=== PATIENT | female | born 1995 | race Caucasian/White ===

== ENCOUNTER 2019-08-30 18:57 | Inpatient (IN) ==
[2019-08-30] MEDS ORDERED: DEXTROSE 5%-LACTATED RINGERS 1,000 ML IV PRN (19:24)
[2019-08-30] MEDS ORDERED: RINGER'S SOLUTION,LACTATED 1,000 ML IV PRN (19:24)
[2019-08-30] MEDS ORDERED: OXYTOCIN/DEXTROSE 5%-WATER 30 UNITS/500 ML BAG IV ONE (19:24)
[2019-08-30] MEDS ORDERED: RINGER'S SOLUTION,LACTATED 1,000 ML IV ONE (19:24)
[2019-08-30] MEDS ORDERED: ONDANSETRON 4 MG TAB.RAPDIS PO PRN (19:24)
[2019-08-30] MEDS ORDERED: ONDANSETRON HCL/PF 2 MG/ML VIAL IV PRN (20:16)
[2019-08-30] MEDS ORDERED: BUPIVACAINE HCL/0.9 % NACL/PF 250 ML EP PRN (20:16)
[2019-08-30] MEDS ORDERED: NALOXONE HCL 1 MG/1 ML SYRG IV PRN (20:16)
--- NOTE | 2019-08-30 20:46 | ANES ---
Anesthesia Pre Procedure Eval Vitals/Labs: Last Vital Signs Temp 37.4 C 08/30/19 19:48 Pulse 108 H 08/30/19 19:48 Resp 16 08/30/19 19:48 BP 122/80 08/30/19 19:48 Pulse Ox 99 08/30/19 19:48 HOME MEDICATIONS vitamins no.121-iron 28 mg-folic acid 800 mcg tablet 1 tab PO DAILY tab 02/12/19 [Last Taken 08/29/19] ferrous sulfate 325 mg (65 mg iron) tablet 325 mg PO DAILY #30 tab 02/13/19 [Last Taken 08/30/19] aspirin 81 mg tablet,delayed release 81 mg PO DAILY 03/10/19 [Last Taken 1 ] breast pump See Dose Instructions .ROUTE .MEDSUPPLY #1 ea 07/16/19 [Last Taken Unknown] docusate sodium 100 mg capsule 100 mg PO DAILY 08/24/19 [Last Taken 08/30/19] Allergies/Adverse Reactions: Allergies Allergy/AdvReac Type Severity Reaction Status Date / Time No Known Drug Allergies Allergy Verified 08/30/19 19:36 - Planned Procedure Planned Procedure: LABOR Medication List Reviewed:: Yes Allergies Verified: Yes Medical History (Updated 08/20/19 @ 17:26 by Juan Delgado DO) Oligohydramnios without rupture of membranes (Acute) 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) 31 weeks UTI (urinary tract infection) (Acute) Onset Date: Unknown Otitis media (Acute) Onset Date: Unknown No significant past surgical history (Acute) Onset Date: Unknown Supracondylar fracture of humerus (Acute) Onset Date: Unknown left and was closed Chlamydia (Acute) Onset Date: Unknown Cellulitis (Acute) Onset Date: Unknown Bronchitis (Acute) Onset Date: Unknown Adjustment reaction (Acute) Onset Date: 03/20/11 , spontaneous Onset Date: 11/2018 4 weeks Prior demise, currently not Onset Date: 07/30/18 31 weeks Surgical History (Updated 06/16/18 @ 11:57 by Lawanda Castellon LPN) Elbow fracture (Acute) Onset Date: Unknown Family History (Updated 06/16/18 @ 11:31 by Lawanda Castellon LPN) Father Alive and well Mother Alive and well Grandmother Hypertension maternal grandmother Diabetes type 2 (maternal grandmother) Mother Alive and well - Family Anesthesia History Family History:: no untoward family reactions to anesthesia - Airway/Neck/Teeth Within Normal Limits:: Yes Teeth Condition: intact Neck Exam: full range of motion Mallampatti Score: 2 Thyromental (T-M) distance: > 6 cm Mandibulo Hyoid distance: > 3 cm - Respiratory Respiratory Physical: lungs clear Smoking Status: Never smoker Sleep Apnea currently treated: No Sleep Apnea by current assessment: No - Cardiovascular Tolerate Activity: Good Heart Sounds: S1 & S2, Regular - Anesthesia Assessment and Plan ASA Class: PS, II, E Anesthesia Type Plan: Epidural Planned difficult intubation/equipment available: No
--- NOTE | 2019-08-30 20:47 | ANES ---
Post Anesthesia Discharge - Transfer of Care Transfer of Care handoff given to nurse: Yes - Anesthesia Post Op Note Anesthesia Post Op Note: Care transferred to OB RN
--- NOTE | 2019-08-30 20:47 | ANES ---
Post Anesthesia Assessment - Vital Signs Vitals: Last Vital Signs Temp 37.4 C 08/30/19 19:48 Pulse 108 H 08/30/19 19:48 Resp 16 08/30/19 19:48 BP 122/80 08/30/19 19:48 Pulse Ox 99 08/30/19 19:48 Airway Patency: Normal - Mental Status Level Of Consciousness: Awake - Pain Level Pain Score: 0 - N/V Assessment Nausea/Vomiting Presence: None Dehydration:: No
--- NOTE | 2019-08-30 20:50 | ANES ---
Anesthesia Procedure Note Procedure Note: ANESTHESIA PROCEDURE NOTE Date of Procedure: 08/30/2019 Time of procedure: 2029. Performed by: Warren Varela CRNA Paste Worker: None. Preprocedure diagnosis: Active labor. Post procedure diagnosis: Same. Procedure: Insertion of labor epidural. Indications: The patient is a 24-year-old multigravida female in active labor requesting labor epidural for pain management. Findings: See below. Details of the procedure: The patient was placed in a sitting position. Back was prepped with DuraPrep. Patient was then draped in a sterile fashion. Lidocaine 1% was infiltrated to the skin and subcutaneous tissues at the level of the L3 4 interspace. The epidural space was identified using a 18-gauge Tuohy needle with [id number] technique. Epidural catheter was inserted without difficulty. Negative test dose was elicited using 3 mL of 1.5% preservative- free lidocaine plus epinephrine 1 200,000. The epidural catheter was then taped and secured in place. EBL: Minimal. Fluids: N/A. Specimen: N/A. Post procedure condition: The patient tolerated the procedure well. No complica tions were noted. Thank you for this consultation. Choe CRNA
[2019-08-31 03:14] LABS: Cocaine Ur Negative (NEGATIVE); Urine Barbiturate Negative (NEGATIVE); Urine Benzodiazepines Negative (NEGATIVE); Urine Opiates Negative (NEGATIVE); Urine PCP Negative (NEGATIVE); Urine THC Negative (NEGATIVE)
--- NOTE | 2019-08-31 06:56 | HP ---
Chief Complaint - Chief Complaint Date of Service: 08/30/19 Time of Service: 19:00 Chief Complaint: Leaking of fluid History of Present Illness: 24 yo at 38 wks admitted for SROM which occurred around 1830 on 08/30/19. This complicated by anemia and h/o 31 week stillbirth. 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 UTI (urinary tract infection) (Acute) Onset Date: Unknown Otitis media (Acute) Onset Date: Unknown No significant past surgical history (Acute) Onset Date: Unknown Supracondylar fracture of humerus (Acute) Onset Date: Unknown left and was closed Chlamydia (Acute) Onset Date: Unknown Cellulitis (Acute) Onset Date: Unknown Bronchitis (Acute) Onset Date: Unknown Adjustment reaction (Acute) Onset Date: 03/20/11 , spontaneous Onset Date: 11/2018 4 weeks Prior demise, currently not Onset Date: 07/30/18 31 weeks Surgical History: Surgical History (Updated 08/31/19 @ 06:56 by Juan Delgado DO) Elbow fracture (Acute) Onset Date: Unknown Family History: Family History (Updated 06/16/18 @ 11:31 by Lawanda Castellon LPN) Father Alive and well Mother Alive and well Grandmother Hypertension maternal grandmother Diabetes type 2 (maternal grandmother) Mother Alive and well Social History: (Last Reviewed 08/31/19 @ 07:02 by Juan Delgado DO) Social History: long term: No Marital status: household members: significant other current occupational status: employed 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 Highest education level completed: Bachelor's degree Service: No Tobacco: Smoking Status: Never smoker Alcohol: alcohol intake: former alcohol intake frequency: holiday/special occasion Substance Use: substance use type: does not use Dietary Habits: caffeine: No Exercise: Physical activity functional status: normal ROM and activity frequency: 3-4 times per week Personal Safety: victim of physical abuse: No victim of emotional abuse: No victim of sexual abuse: No Review Of Systems (GEN) - Review of Systems Generalized/Overall Review: Present: No Symptoms Reported EENTM: Present: No Symptoms Reported Respiratory: Present: No Symptoms Reported Cardiac: Present: No Symptoms Reported Abdominal: Present: Other - mild irregular contractions Genitourinary: Present: Other - large gush of fluid with leaking fluid thereafter since around 1830 - clear Musculoskeletal: Present: No Symptoms Reported Neurological: Present: No Symptoms Reported Skin: Present: No Symptoms Reported Endocrine: Present: No Symptoms Reported Allergies/Adverse Reactions: Allergies Allergy/AdvReac Type Severity Reaction Status Date / Time No Known Drug Allergies Allergy Verified 08/30/19 19:36 Home Medications: HOME MEDICATIONS vitamins no.121-iron 28 mg-folic acid 800 mcg tablet 1 tab PO DAILY tab 02/12/19 [Last Taken 08/29/19] ferrous sulfate 325 mg (65 mg iron) tablet 325 mg PO DAILY #30 tab 02/13/19 [Last Taken 08/30/19] aspirin 81 mg tablet,delayed release 81 mg PO DAILY 03/10/19 [Last Taken 08/30/19] breast pump See Dose Instructions .ROUTE .MEDSUPPLY #1 ea 07/16/19 [Last Taken Unknown] docusate sodium 100 mg capsule 100 mg PO DAILY 08/24/19 [Last Taken 08/30/19] Exam - Exam Vital Signs: Vital Signs - Last Taken Temp 37.4 C 08/30/19 19:48 Pulse 108 H 08/30/19 19:48 Resp 16 08/30/19 19:48 BP 122/80 08/30/19 19:48 Pulse Ox 99 08/30/19 19:48 Constitutional: Present: Alert, Oriented x3, Cooperative, No distress ENT Exam: Present: hearing grossly normal Breasts: Present: Exam deferred Respiratory: Present: lungs clear, no respiratory distress Cardiovascular/Chest: Present: regular rate, rhythm, no edema Abdomen: Present: soft, no rebound tenderness, other - gravid /Rectal: Present: Other - 4/60/-2 Extremity: Present: no pedal edema, no calf tenderness Skin Exam: Present: normal color, warm/dry, no cyanosis Neurologic: Present: alert, normal mood/affect, oriented x 3 Appearance: Present: appropriate appearance, appropriate insight Eye contact: Present: cooperative, good eye contact Thoughts: Present: normal thought pattern, normal mood /affect Diagnostic Studies: Laboratory Results Negative (NEGATIVE) 08/31/19 02:50 Negative (NEGATIVE) 08/31/19 02:50 Ur Phencyclidine Scrn Negative (NEGATIVE) 08/31/19 02:50 Urine Amphetamine Negative (NEGATIVE) 08/31/19 02:50 U Benzodiazepines Scrn Negative (NEGATIVE) 08/31/19 02:50 Negative (NEGATIVE) 08/31/19 02:50 Negative (NEGATIVE) 08/31/19 02:50 Assessment/Plan - Assessment/Plan (1) SROM (spontaneous rupture of membranes) Assessment: Admit for labor. Epidural and pitocin PRN. Minimize vaginal exams. Problem: Acute (2) History of stillbirth in currently patient Problem: Chronic Qualifiers: Trimester: third trimester Qualified Code(s): O09.293 - Supervision of with other poor reproductive or obstetric history, third trimester
[2019-08-31] MEDS ORDERED: IBUPROFEN 800 MG TABLET PO PRN (06:57)
[2019-08-31] MEDS ORDERED: BISACODYL 10 MG SUPP.RECT RC PRN (06:57)
[2019-08-31] MEDS ORDERED: SENNOSIDES 8.6 MG TABLET PO PRN (06:57)
[2019-08-31] MEDS ORDERED: BENZOCAINE/MENTHOL 81 SPRAY CAN TP PRN (06:57)
[2019-08-31] MEDS ORDERED: OXYTOCIN/DEXTROSE 5%-WATER 30 UNITS/500 ML BAG IV ONE (06:57)
[2019-08-31] MEDS ORDERED: HYDROCORTISONE 30 APPL TUBE TP PRN (06:57)
[2019-08-31] MEDS ORDERED: oxyCODONE HCL/ACETAMINOPHEN 1 TAB TABLET PO PRN (06:57)
--- NOTE | 2019-08-31 07:01 | OR ---
Operative Report - Dictated Report Narrative: 24-year-old 3 para 0 at 38 1/7 weeks had spontaneous vaginal delivery of vigorously crying viable male at 0620 on 08/31/2019 with Apgars 9 and 9, weighing 4072 g in TAMANNA position. Cord clamping delayed approximately 1 minute Placenta delivered complete, intact, with three vessel cord Estimated blood loss: Less than 50 ml Anesthesia: Epidural Lacerations: 2 cm second-degree vaginal laceration repaired with 3-0 Vicryl Rapide. History for History for Definition: * The number of deliveries resulting in a live the patient experienced prior to current hospitalization * The previous delivery of live twins or any live multiple gestation is considered one live event. *If primagravida or nulliparous is documented select zero for the number of previous live births. Live Events: Live Events: 0
[2019-08-31] MEDS ORDERED: DOCUSATE SODIUM 100 MG CAPSULE PO SCH (09:00)
[2019-08-31] MEDS: FERROUS SULFATE 325 MG TABLET PO SCH (10:08)
[2019-08-31] MEDS: DOCUSATE SODIUM 100 MG CAPSULE PO SCH ×2 (10:08→20:40)
[2019-08-31] MEDS: PRENATAL VITS96/IRON FUM/FOLIC 1 TAB TABLET PO SCH (10:09)
[2019-08-31] MEDS: GLYCERIN/WITCH HAZEL LEAF 40 APPL BOX TP PRN (11:35)
[2019-08-31] MEDS: IBUPROFEN 800 MG TABLET PO PRN ×2 (14:27→20:40)
[2019-09-01] MEDS: IBUPROFEN 800 MG TABLET PO PRN ×3 (04:13→20:54)
--- NOTE | 2019-09-01 08:31 | PN ---
Subjective - Date and Time Seen Date: 09/01/19 Time: 08:24 Objective - Vitals Vitals: Last Vital Signs Temp 36.6 C 09/01/19 07:21 Pulse 99 09/01/19 07:21 Resp 16 09/01/19 07:21 BP 120/73 09/01/19 07:21 Pulse Ox 99 09/01/19 07:21 Patient denies complaints. Breast-feeding Lochia wnl abdomen - soft, nontender Uterus -firm, at umbilicus - 1 no calf tenderness Impression: day #1 - s/p spontaneous vaginal delivery. Plan: Continue routine care Cauti Physician Documentation - Urinary Catheter Management Urethral ([place]) Date of Insertion: 08/31/19 Time of Insertion: 02:50 Assessment/Plan - Problems/Diagnosis (1) SROM (spontaneous rupture of membranes) Problem: Acute (2) History of stillbirth in currently patient Problem: Chronic Qualifiers: Trimester: third trimester Qualified Code(s): O09.293 - Supervision of with other poor reproductive or obstetric history, third trimester
[2019-09-01] MEDS ORDERED: FLU VACC QS2019-20(6MOS UP)/PF 60 MCG/0.5 ML SYRINGE IM ONE ×3 (09:00→16:30)
[2019-09-01] MEDS: FERROUS SULFATE 325 MG TABLET PO SCH (15:49)
[2019-09-01] MEDS: DOCUSATE SODIUM 100 MG CAPSULE PO SCH ×2 (15:49→20:54)
[2019-09-01] MEDS: PRENATAL VITS96/IRON FUM/FOLIC 1 TAB TABLET PO SCH ×2 (15:58→20:54)
[2019-09-02] MEDS: IBUPROFEN 800 MG TABLET PO PRN ×3 (05:18→23:01)
[2019-09-02] MEDS: FERROUS SULFATE 325 MG TABLET PO SCH (08:28)
[2019-09-02] MEDS: DOCUSATE SODIUM 100 MG CAPSULE PO SCH ×2 (08:28→20:49)
[2019-09-02] MEDS: PRENATAL VITS96/IRON FUM/FOLIC 1 TAB TABLET PO SCH (08:28)
[2019-09-02] MEDS: GLYCERIN/WITCH HAZEL LEAF 40 APPL BOX TP PRN (08:28)
--- NOTE | 2019-09-02 13:57 | PN ---
Subjective - Date and Time Seen Date: 09/02/19 Time: 13:56 Objective - Vitals Vitals: Last Vital Signs Temp 36.5 C 09/02/19 07:00 Pulse 93 09/02/19 07:00 Resp 14 09/02/19 07:00 BP 132/82 09/02/19 07:00 Pulse Ox 99 09/02/19 07:00 Patient denies complaints. Lochia wnl abdomen - soft, nontender Uterus -firm, at umbilicus - 2 no calf tenderness Impression: day #2 - s/p spontaneous vaginal delivery. Plan: Routine discharge instructions Cauti Physician Documentation - Urinary Catheter Management Urethral ([place]) Date of Insertion: 08/31/19 Time of Insertion: 02:50 Assessment/Plan - Problems/Diagnosis (1) SROM (spontaneous rupture of membranes) Problem: Acute (2) History of stillbirth in currently patient Problem: Chronic Qualifiers: Trimester: third trimester Qualified Code(s): O09.293 - Supervision of with other poor reproductive or obstetric history, third trimester
[2019-09-02 19:18] VITALS: BP 126/75
[2019-09-02] MEDS ORDERED: guaiFENesin 100 MG/5 ML SYRUP PO PRN (20:56)
== END 2019-09-02 23:55 | disposition home or self-care (01) | DRG 807 ==
LOC: OB 18:57
PROVIDERS: ADMIT Obstetrics & Gynecology; ATTEND Obstetrics & Gynecology
CPT/HCPCS: 59025; 80307; 90686